=== PATIENT | female | born 1995 | race Caucasian/White ===

== ENCOUNTER 2017-02-20 18:00 | Emergency (ER) | payer OTHER ==
[~2017-02-20] VITALS: Ht 167.6 cm; Wt 67.2 kg
[2017-02-20 18:04] VITALS: TEMP 36.6; Ht 167.6 cm; Wt 67.2 kg
--- NOTE | 2017-02-20 19:06 | DIAGNOSTIC IMAGING REPORT ---
CHEST ONE VIEW PORTABLE CLINICAL HISTORY: Atypical chest pain COMPARISON STUDY: No previous studies for comparison. FINDINGS: The cardiac and mediastinal contours are normal. There is no evidence of focal pulmonary consolidation. There is no evidence of failure. No pleural effusions are visualized.[ IMPRESSION: No active disease in the chest. Electronically signed by: Giovany Jc M.D. 02/20/2017 7:05 PM Dictated Date/Time: 02/20/2017 7:05 PM
[2017-02-20 19:18] LABS: BASO % 0.2 %; BASO ABS # 0.02 K/uL (0-0.2); COMPLETE YES; EOS % 1.2 %; HEMATOCRIT 43.2 % (37-47); IG% 0.1 %; LYMPH % 25.9 %; LYMPH ABS # 2.51 K/uL (1.2-3.4); MEAN CELL VOLUME 88.5 fL (80-100); MEAN CORPUSCULAR HEMOGLOBIN 30.9 pg (25-34); MEAN PLATELET VOLUME 10.2 fL (7.4-10.4); MONO % 9.9 %; NEUT % 62.7 %; PLATELET COUNT 232 K/uL (130-400); RED BLOOD COUNT 4.88 M/uL (4.2-5.4); WHITE BLOOD COUNT 9.69 K/uL (4.8-10.8)
[2017-02-20 19:36] LABS: BLOOD UREA NITROGEN 16 mg/dl (7-18); BUN/CREATININE RATIO 21.1 (10-20); CARBON DIOXIDE 28 mmol/L (21-32); CHLORIDE 106 mmol/L (98-107); CREATININE 0.76 mg/dl (0.60-1.20); GLUCOSE 86 mg/dl (70-99); POTASSIUM 3.8 mmol/L (3.5-5.1); SODIUM 141 mmol/L (136-145)
[2017-02-20 22:10] VITALS: BP 128/72; PULSE 68; O2SAT 97
--- NOTE | 2017-02-21 01:18 | EMERGENCY ROOM VISIT NOTE ---
History Report prepared by Humberto: Juaquin Vela Under the Supervision of: Dr. Burak Leary D.O. First contact with patient: 18:12 Chief Complaint: CHEST PAIN Stated Complaint: CHEST PAIN, RAPID HEARTBEAT Nursing Triage Summary: pt to the ED with c/o chest pain for the past 24 hrs pt has hx of SVT with a previous ablation History of Present Illness The patient is a 21 year old female who presents to the Emergency Room with complaints of intermittent chest paints that began 24 hours prior to arrival. the patient states that the pain has been predominantly present over the left chest, but it does radiate into her left ribs and into her right chest. The pain onsets 2-3 times per hour and can last anywhere from 5 minutes - 1 hour. She notes that she has experienced shortness of breath with her chest pain, and an unusual intermittent pain in her left bicep. Nothing relieves or worsens her chest pain. The patient does have a history of anxiety and notes that her shortness of breath symptoms feels similar to what she has experienced in the past with her anxiety attacks. She has not been coughing up blood, no swelling, recent surgeries, no long trips, no smoking, no history of blood clots and has no cardiac history. She is not on control. She denies any history of diabetes, hypertension, hyperlipidemia, CAD or sudden in her family at a young age. The patient denies headache, change in vision, fevers, nausea, vomiting, diarrhea, pain with urination, and melena. 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 Review of Systems See HPI for pertinent positives & negatives. A total of 10 systems reviewed and were otherwise negative. Past Medical & Surgical Surgical Problems: (1) H/O cardiac radiofrequency ablation Family History Patient notes no family histories. Social History Marital Status: single Housing Status: lives alone Occupation Status: employed Current/Historical Medications No Active Prescriptions or Reported Meds Allergies Coded Allergies: No Known Allergies (Unverified , 02/20/17) Physical Exam Vital Signs Date Time Temp Pulse Resp B/P Pulse Ox O2 Delivery O2 Flow Rate FiO2 02/20/17 22:10 68 18 128/72 97 02/20/17 20:10 88 20 112/72 97 Room Air 02/20/17 18:30 94 02/20/17 18:04 36.6 73 16 157/104 97 Room Air Physical Exam GENERAL: Sitting up in bed, alert, well appearing, well nourished, no distress, non-toxic EYE EXAM: normal conjunctiva. OROPHARYNX: no exudate, no erythema, lips, buccal mucosa, and tongue normal and mucous membranes are moist NECK: supple, no nuchal rigidity, no adenopathy, non-tender CHEST: No reproducible anterior chest wall pain. LUNGS: Clear to auscultation. Normal chest wall mechanics HEART: no murmurs, S1 normal and S2 normal ABDOMEN: abdomen soft, non-tender, normo-active bowel sounds, no masses, no rebound or guarding. BACK: Back is symmetrical on inspection and there is no deformity, no midline tenderness, no CVA tenderness. SKIN: no rashes and no bruising UPPER EXTREMITIES: upper extremities are grossly normal. Radial pulses are equal bilaterally. LOWER EXTREMITIES: No pitting edema. Calves are equal bilaterally. NEURO EXAM: Normal sensorium, cranial nerves II-XII grossly intact, normal speech, no gross weakness of arms, no gross weakness of legs. Medical Decision & Procedures ER Provider Diagnostic Interpretation: Radiology results as stated below per my review and the radiologist's interpretation: CHEST ONE VIEW PORTABLE CLINICAL HISTORY: Atypical chest pain COMPARISON STUDY: No previous studies for comparison. FINDINGS: The cardiac and mediastinal contours are normal. There is no evidence of focal pulmonary consolidation. There is no evidence of failure. No pleural effusions are visualized.[ IMPRESSION: No active disease in the chest. Electronically signed by: Giovany Jc M.D. 02/20/2017 7:05 PM Dictated Date/Time: 02/20/2017 7:05 PM Laboratory Results 02/20/17 19:00 Red Blood Count 4.88, Mean Corpuscular Volume 88.5, Mean Corpuscular Hemoglobin 30.9, Mean Corpuscular Hemoglobin Concent 35.0, Mean Platelet Volume 10.2, Neutrophils (%) (Auto) 62.7, Lymphocytes (%) (Auto) 25.9, Monocytes (%) (Auto) 9.9, Eosinophils (%) (Auto) 1.2, Basophils (%) (Auto) 0.2, Neutrophils # (Auto) 6.07, Lymphocytes # (Auto) 2.51, Monocytes # (Auto) 0.96, Eosinophils # (Auto) 0.12, Basophils # (Auto) 0.02 02/20/17 19:00 Test 02/20/17 19:00 02/20/17 21:10 White Blood Count 9.69 K/uL (4.8-10.8) Red Blood Count 4.88 M/uL (4.2-5.4) Hemoglobin 15.1 g/dL (12.0-16.0) Hematocrit 43.2 % (37-47) Mean Corpuscular Volume 88.5 fL (80-100) Mean Corpuscular Hemoglobin 30.9 pg (25-34) Mean Corpuscular Hemoglobin Concent 35.0 g/dl (32-36) Platelet Count 232 K/uL (130-400) Mean Platelet Volume 10.2 fL (7.4-10.4) Neutrophils (%) (Auto) 62.7 % Lymphocytes (%) (Auto) 25.9 % Monocytes (%) (Auto) 9.9 % Eosinophils (%) (Auto) 1.2 % Basophils (%) (Auto) 0.2 % Neutrophils # (Auto) 6.07 K/uL (1.4-6.5) Lymphocytes # (Auto) 2.51 K/uL (1.2-3.4) Monocytes # (Auto) 0.96 K/uL (0.11-0.59) Eosinophils # (Auto) 0.12 K/uL (0-0.5) Basophils # (Auto) 0.02 K/uL (0-0.2) RDW Standard Deviation 39.2 fL (36.4-46.3) RDW Coefficient of Variation 12.3 % (11.5-14.5) Immature Granulocyte % (Auto) 0.1 % Immature Granulocyte # (Auto) 0.01 K/uL (0.00-0.02) Anion Gap 7.0 mmol/L (3-11) Est Creatinine Clear Calc Drug Dose 108.6 ml/min Estimated GFR () 129.1 Estimated GFR (Non- 111.3 BUN/Creatinine Ratio 21.1 (10-20) Calcium Level 9.0 mg/dl (8.5-10.1) Troponin I < 0.015 ng/ml (0-0.045) Laboratory results per my review. ECG Indication: chest pain Rate (beats per minute): 72 Rhythm: sinus with SA Findings: other (Normal axis, normal intervals. ) ED Course ED COURSE: Vital signs were reviewed and showed hypertensive The patients medical record was reviewed The above diagnostic studies were performed and reviewed. ED treatments and interventions as stated above. 1813: The patient was evaluated in room B7. A complete history and physical examination was performed. 2012: I checked on the patient at this time and updated her on the status of her visit thus far. 2201: Upon reevaluation, the patient is resting in bed.I discussed my findings with the patient and she understands and agrees with the treatment plan. Based on the patients age, coexisting illnesses, exam and lab findings the decision to treat as an outpatient was made. The patient remained stable while under my care. The patient appeared well at the time of discharge. Medical Decision Differential diagnoses includes but is not limited to acute coronary syndrome, myocardial infarction, pericarditis, pulmonary embolus, aortic dissection, pneumonia, pneumothorax, musculoskeletal, shingles, esophageal. Patient is a 21-year-old female who presents the ER for 24 hours worth of chest pain which comes and goes about 2-3 times in our and associated with shortness of breath. She has no PE risk factors for no cardiac risk factors. Troponin was negative with pain that has present for greater than 24 hours. Chest x-ray was unremarkable. EKG was unremarkable. Troponins were trended and were both negative. CBC and BMP were otherwise unremarkable. Patient was discharged to follow-up with primary care doctor/UA chest as I feel this is likely related to anxiety versus muscle skeletal pain. Discussed with Pt concerning signs and symptoms to watch out for. Pt was instructed to follow up with their PCP and discussed with the patient their option to return to the ED at anytime for persistent or worsening symptoms. The appropriate anticipatory guidance and out- patient management, including indications for return to the emergency department , were explained at length to the patient and understood. Impression Primary Impression: Precordial chest pain Scribe Attestation The scribe's documentation has been prepared under my direction and personally reviewed by me in its entirety. I confirm that the note above accurately reflects all work, treatment, procedures, and medical decision making performed by me. Departure Information Dispostion Home / Self-Care Prescriptions No Active Prescriptions or Reported Meds Referrals No Doctor, Assigned (PCP) Forms HOME CARE DOCUMENTATION FORM, IMPORTANT VISIT INFORMATION Patient Instructions My [facility] Additional Instructions Please follow up with your primary care doctor or if you are a student [facility] with in the next 24 hours. Any worsening of your symptoms, please return to the ED immediately. This includes passing out, worsening pain, inability to breathe, or any other concerning signs or symptoms from your standpoint.
== END 2017-02-20 22:12 | disposition home or self-care (01) ==
LOC: C.EDB 18:02
DX: R07.2 Precordial pain (principal); R00.0 Tachycardia, unspecified

== ENCOUNTER 2017-04-16 12:39 | Emergency (ER) | payer OTHER ==
[~2017-04-16] VITALS: Ht 167.6 cm; Wt 67.1 kg
[2017-04-16 12:46] VITALS: TEMP 36.8; Ht 167.6 cm; Wt 67.1 kg
[2017-04-16] MEDS ORDERED: SODIUM CHLORIDE 0.9% 1000ML 1,000 ML IV STA ×2 (14:39→15:06)
[2017-04-16 14:40] VITALS: O2SAT 98
[2017-04-16] MEDS ORDERED: PROCHLORPERAZINE 5 MG/ML 2 ML VIAL IV STA (15:06)
[2017-04-16] MEDS ORDERED: DiphenhydrAMINE HCL 50 MG/ML VIAL IV STA (15:06)
[2017-04-16] MEDS ORDERED: KETOROLAC TROMETHAMINE 30 MG/ML VIAL IV STA (15:06)
[2017-04-16 15:08] LABS: BASO % 0.2 %; BASO ABS # 0.02 K/uL (0-0.2); COMPLETE YES; EOS % 0.7 %; HEMATOCRIT 42.3 % (37-47); IG% 0.1 %; LYMPH % 23.3 %; LYMPH ABS # 2.06 K/uL (1.2-3.4); MEAN CELL VOLUME 87.8 fL (80-100); MEAN CORPUSCULAR HEMOGLOBIN 30.9 pg (25-34); MEAN CORPUSCULAR HGB CONC 35.2 g/dl (32-36); MEAN PLATELET VOLUME 9.6 fL (7.4-10.4); MONO % 9.5 %; NEUT % 66.2 %; PLATELET COUNT 249 K/uL (130-400); RED BLOOD COUNT 4.82 M/uL (4.2-5.4); WHITE BLOOD COUNT 8.84 K/uL (4.8-10.8)
--- NOTE | 2017-04-16 15:10 | EMERGENCY ROOM VISIT NOTE ---
History Report prepared by Valenciaiburvashi: Arturo Perez Under the Supervision of: Dr. Linh Valencia M.D. First contact with patient: 14:36 Chief Complaint: CHEST PAIN Stated Complaint: CHEST PAIN, HEADACHE Nursing Triage Summary: pt c/o midsternal chest pain that started approximately 30 minutes ago with some SOB. pain does not radiate. pt did not take anything for pain hx SVT c/ ablation 2009 History of Present Illness The patient is a 21 year old female who presents to the Emergency Room with complaints of intermittent chest pain that began 30 minutes ago. She rates her discomfort as a 6/10 in severity. The patient states that she hit her head on a pool chair a week ago, but denies being concerned about it afterwards. She reports that she has been experiencing a headache for a week. She also states she has been experiencing tachycardia and a fluttering in her chest starting a couple of days ago, which she states is not normal. The patient reports that she started to feel chest pain and short of breath prior to arrival and felt hot. She also reports that she is experiencing a headache in the front and back of her head. The patient states that she has been recently stressed out due to her relationship problem. She reports that she has been diagnose with SVT and had a cardiac ablation. She denies nausea, change in mental status, dysphasia, control pills, substances, tobacco, drinking, possible , migraines, and shortness of breath upon exertion. 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 A total of 10 systems reviewed and were otherwise negative. Past Medical & Surgical Medical Problems: (1) SVT (supraventricular tachycardia) Surgical Problems: (1) H/O cardiac radiofrequency ablation Social History Smoking Status: Never Smoker Marital Status: single Housing Status: lives alone Occupation Status: employed Current/Historical Medications No Active Prescriptions or Reported Meds Allergies Coded Allergies: No Known Allergies (Unverified , 04/16/17) Physical Exam Vital Signs Date Time Temp Pulse Resp B/P (MAP) Pulse Ox O2 Delivery O2 Flow Rate FiO2 04/16/17 17:00 116/71 04/16/17 16:44 68 18 98 04/16/17 16:14 51 17 98 04/16/17 16:09 60 14 98 04/16/17 16:01 106/70 04/16/17 15:39 62 14 98 04/16/17 15:13 138/74 04/16/17 15:09 78 21 98 04/16/17 14:53 64 04/16/17 14:43 132/83 04/16/17 14:40 98 Room Air 04/16/17 12:48 100 Room Air 04/16/17 12:46 36.8 65 18 139/83 100 Room Air Physical Exam Vital signs reviewed. General: Well-appearing 21 year old female, in no significant distress. HEENT: No scleral icterus, PERRLA, neck supple. Atraumatic. Cardiovascular: Regular rate and rhythm, no extra sounds. Pulmonary: Clear to auscultation bilaterally, normal work of breathing. Abdomen: Soft, nontender, nondistended, positive bowel sounds. Musculoskeletal: Atraumatic, no peripheral edema. Non tender to palpation of anterior chest. No meningeal signs Neurologic: Patient awake alert and oriented x 3, full strength in all 4 extremities. Cranial nerves 2 through 12 grossly intact. Skin: Warm, dry, no rash Medical Decision & Procedures ER Provider Diagnostic Interpretation: X-ray results as stated below per interpretation by me and the radiologist: CHEST ONE VIEW PORTABLE CLINICAL HISTORY: Atypical chest pain. Headache. COMPARISON STUDY: 02/20/2017 FINDINGS: The cardiac and mediastinal contours are normal. There is no evidence of focal pulmonary consolidation. There is no evidence of failure. No pleural effusions are visualized. IMPRESSION: No active disease in the chest. Electronically signed by: Giovany Jc M.D. 04/16/2017 3:17 PM Dictated Date/Time: 04/16/2017 3:17 PM Laboratory Results 04/16/17 14:15 Red Blood Count 4.82, Mean Corpuscular Volume 87.8, Mean Corpuscular Hemoglobin 30.9, Mean Corpuscular Hemoglobin Concent 35.2, Mean Platelet Volume 9.6, Neutrophils (%) (Auto) 66.2, Lymphocytes (%) (Auto) 23.3, Monocytes (%) (Auto) 9.5, Eosinophils (%) (Auto) 0.7, Basophils (%) (Auto) 0.2, Neutrophils # (Auto) 5.85, Lymphocytes # (Auto) 2.06, Monocytes # (Auto) 0.84, Eosinophils # (Auto) 0.06, Basophils # (Auto) 0.02 04/16/17 14:15 Test 04/16/17 14:15 04/16/17 15:00 White Blood Count 8.84 K/uL (4.8-10.8) Red Blood Count 4.82 M/uL (4.2-5.4) Hemoglobin 14.9 g/dL (12.0-16.0) Hematocrit 42.3 % (37-47) Mean Corpuscular Volume 87.8 fL (80-100) Mean Corpuscular Hemoglobin 30.9 pg (25-34) Mean Corpuscular Hemoglobin Concent 35.2 g/dl (32-36) Platelet Count 249 K/uL (130-400) Mean Platelet Volume 9.6 fL (7.4-10.4) Neutrophils (%) (Auto) 66.2 % Lymphocytes (%) (Auto) 23.3 % Monocytes (%) (Auto) 9.5 % Eosinophils (%) (Auto) 0.7 % Basophils (%) (Auto) 0.2 % Neutrophils # (Auto) 5.85 K/uL (1.4-6.5) Lymphocytes # (Auto) 2.06 K/uL (1.2-3.4) Monocytes # (Auto) 0.84 K/uL (0.11-0.59) Eosinophils # (Auto) 0.06 K/uL (0-0.5) Basophils # (Auto) 0.02 K/uL (0-0.2) RDW Standard Deviation 38.4 fL (36.4-46.3) RDW Coefficient of Variation 12.0 % (11.5-14.5) Immature Granulocyte % (Auto) 0.1 % Immature Granulocyte # (Auto) 0.01 K/uL (0.00-0.02) Anion Gap 5.0 mmol/L (3-11) Est Creatinine Clear Calc Drug Dose 100.7 ml/min Estimated GFR () 117.7 Estimated GFR (Non- 101.6 BUN/Creatinine Ratio 11.7 (10-20) Calcium Level 9.2 mg/dl (8.5-10.1) Total Bilirubin 0.6 mg/dl (0.2-1) Direct Bilirubin 0.1 mg/dl (0-0.2) Aspartate Amino Transf (AST/SGOT) 12 U/L (15-37) Alanine Aminotransferase (ALT/SGPT) 16 U/L (12-78) Alkaline Phosphatase 82 U/L (45-117) Total Protein 7.4 gm/dl (6.4-8.2) Albumin 4.0 gm/dl (3.4-5.0) Bedside D-Dimer 141 ng/mlFEU (0-450) Bedside Troponin I < 0.030 ng/ml (0-0.045) Laboratory results per my review. Medications Administered Medications (Trade) Dose Ordered Sig/Maria Esther Route Start Time Stop Time Status Last Admin Dose Admin Prochlorperazine Edisylate (Compazine Inj) 10 mg NOW STAT IV 04/16/17 15:06 04/16/17 15:08 DC 04/16/17 15:29 10 MG Diphenhydramine HCl (Benadryl Inj) 25 mg NOW STAT IV 04/16/17 15:06 04/16/17 15:08 DC 04/16/17 15:28 25 MG Ketorolac Tromethamine (Toradol Inj) 30 mg NOW STAT IV 04/16/17 15:06 04/16/17 15:08 DC 04/16/17 15:29 30 MG Sodium Chloride 1,000 ml @ 999 mls/hr Q1H1M STAT IV 04/16/17 15:06 04/16/17 16:06 DC 04/16/17 15:18 999 MLS/HR ECG Indication: chest pain Rate (beats per minute): 76 Rhythm: normal sinus, other (sinus arrythmia) Findings: no acute ischemic change, no ectopy ED Course 1439: Sodium Chloride 1000 ml @ 150 mls/hr IV. 1501: Past medical records reviewed. The patient was evaluated in room A04B. A complete history and physical examination was performed. 1506: Sodium Chloride 1000 ml @ 999 mls/hr IV, Toradol Injection 30 mg IV, Benadryl Injection 25 mg IV, Compazine Injection 10 mg IV. 1730: Upon reevaluation, the patient appeared to have improvement of her symptoms. I discussed findings with the patient. She verbalized agreement of the treatment plan. She was discharged home. Medical Decision Differential diagnoses includes acute coronary syndrome, pulmonary embolus, aortic dissection, musculoskeletal pain, pneumonia, pleural effusion, pneumothorax, gastritis, peptic ulcer disease, intracranial hemorrhage, intracranial mass, migraine, headache. Medication Reconciliation: I attest that I have personally reviewed the patient' s current medication list. Blood Pressure Screening: Patient was found to have normal blood pressure on screening and does not require follow-up. This pt was evaluated and appeared to be in no distress. IV access was obtained and lab work was drawn. Pt was placed on the planisher. EKG is NSR without ectopy or ischemia. DDimer is neg, trop is neg. Head CT was performed as this is a new ROCHA for the pt. This is also negative. CXR is clear. Pt was feeling improved after IV compazine, benadryl, toradol and IVF. I am concerned that the pt has been undergoing some stress with boyfriend issues and a recent college graduation. Her father is on his way to [place] to visit. Pt was d/c to a ride. She was encouraged to see her PCP this week for reeval and return to the ED for worsening of symptoms. Impression Primary Impression: Substernal precordial chest pain Additional Impression: Headache Scribe Attestation The scribe's documentation has been prepared under my direction and personally reviewed by me in its entirety. I confirm that the note above accurately reflects all work, treatment, procedures, and medical decision making performed by me. Departure Information Dispostion Home / Self-Care Prescriptions No Active Prescriptions or Reported Meds Referrals No Doctor, Assigned (PCP) Forms HOME CARE DOCUMENTATION FORM, IMPORTANT VISIT INFORMATION Patient Instructions My [facility] Additional Instructions Diagnosis: Headache, chest pain Ibuprofen 600 mg every 6 hours as needed for pain with food. Drink plenty of clear fluids. Follow-up with your physician this week for reevaluation. Return to the ER for worsening of symptoms or any medical concerns. Problem Qualifiers
--- NOTE | 2017-04-16 15:19 | DIAGNOSTIC IMAGING REPORT ---
CHEST ONE VIEW PORTABLE CLINICAL HISTORY: Atypical chest pain. Headache. COMPARISON STUDY: 02/20/2017 FINDINGS: The cardiac and mediastinal contours are normal. There is no evidence of focal pulmonary consolidation. There is no evidence of failure. No pleural effusions are visualized.[ IMPRESSION: No active disease in the chest. Electronically signed by: Giovany Jc M.D. 04/16/2017 3:17 PM Dictated Date/Time: 04/16/2017 3:17 PM
[2017-04-16 15:20] LABS: POINT OF CARE TROPONIN I < 0.030 ng/ml (0-0.045)
[2017-04-16 15:25] LABS: BUN/CREATININE RATIO 11.7 (10-20); CALCIUM 9.2 mg/dl (8.5-10.1); CREATININE 0.82 mg/dl (0.60-1.20); POTASSIUM 3.8 mmol/L (3.5-5.1)
[2017-04-16 16:44] VITALS: PULSE 68; O2SAT 98
[2017-04-16 17:00] VITALS: BP 116/71
== END 2017-04-16 17:30 | disposition home or self-care (01) ==
LOC: C.EDB 12:41 → C.EDA 17:30
DX: R07.2 Precordial pain (principal); R51 Headache; I47.1 Supraventricular tachycardia